=== PATIENT | male | born 1950 | race Caucasian/White ===

== ENCOUNTER 2019-11-14 11:03 | Inpatient (IN) | payer OTHER ==
[2019-11-14] VITALS (9 sets, daily range): BP systolic 98–143; BP diastolic 74–86
[~2019-11-14] VITALS: Ht 182.8 cm; Wt 85.3 kg
[~2019-11-14 11:03] MED LIST: ACETAMINOPHEN325 M2 PO; BACTROBAN OINT22 GM PO; BUPROPION HCL150 M1 PO; CALCIUM 500 + D1 TA1 PO; CLONAZEPAM0.5 MG PO; Depakote ER500 MG PO; FOSAMAX70 MG PO; GLYBURIDE5 MG PO; IBUPROFEN 30 M800 MG PO; KEFLEX500 MG PO; LANTUS SOL100 UNIT/1 SQ; LOMOTIL 0.025 M1 TA1 PO; MINIPRESS2 M1 PO; PANTOPRAZOLE40 M1 PO; POTASSIUM20 MEQ PO; SIMVASTATIN80 MG PO; TERAZOSIN5 MG PO; TRAMADOL HYDROC50 MG PO; [UNRECOGNIZED DRUG - CODE] PO
[2019-11-14 11:25] LABS: BASO % 0.6 % (0.0-1.0); EOS # 0.1 10*3/uL (0.0-0.4); HEMATOCRIT 44.2 % (42.0-52.0); HEMOGLOBIN 15.6 g/dl (14.0-18.0); LYMPH # 2.2 10*3/uL (1.3-4.4); LYMPH % 30.8 % (27.0-41.0); MEAN CORPUSCULAR HGB 30.7 pg (27.0-31.0); MEAN CORPUSCULAR HGB CONC 35.3 g/dl (33.0-37.0); MEAN PLATELET VOLUME 9.5 fl (9.6-12.3); MONO # 0.5 10*3/uL (0.1-1.0); NEUT # 4.3 10*3/uL (2.3-7.9); NEUT % 60.2 % (47.0-73.0); PLATELET COUNT AUTOMATED 145 10*3/uL (130-400); RED BLOOD COUNT 5.08 10*6/uL (4.50-5.90); RED CELL DISTRI WIDTH 13.6 % (0-14.5); WHITE BLOOD COUNT 7.1 10*3/uL (4.8-10.8)
[2019-11-14 11:35] LABS: ACT PARTIAL THROMBO TIME 27.2 SECONDS (20.0-32.1)
[2019-11-14 11:41] LABS: ALBUMIN 4.1 gm/dl (3.1-4.5); ALKALINE PHOSPHATASE 96 U/L (45-117); BUN 18 mg/dl (7-24); CHLORIDE 109 mmol/L (98-107); CREATININE 1.36 mg/dL (0.70-1.30); POTASSIUM 4.7 mmol/L (3.5-5.1); SGOT/AST 6 IU/L (3-35); SGPT/ALT 22 U/L (12-78); SODIUM 139 mmol/L (136-145); TOTAL PROTEIN 7.5 gm/dL (6.4-8.2)
[2019-11-14 11:43] LABS: TROPONIN I < 0.015 ng/ml (<0.045)
[2019-11-14] MEDS ORDERED: LISINOPRIL40 MG PO (14:46)
[2019-11-14] MEDS ORDERED: NEURONTIN100 MG PO (14:48)
[2019-11-14] MEDS ORDERED: LIPITOR20 MG PO (14:50)
[2019-11-14] MEDS ORDERED: NORVASC2.5 MG PO (14:50)
[2019-11-14] MEDS ORDERED: OMEPRAZOLE20 M2 PO (14:51)
[2019-11-14] MEDS ORDERED: GLUCOPHAGE500 M1 PO ×2 (14:55→14:58)
[2019-11-14] MEDS ORDERED: VITAMIN D33000 UNIT PO (14:59)
[2019-11-15] VITALS (10 sets, daily range): BP systolic 70–110; BP diastolic 46–72
[2019-11-15 08:52] LABS: BUN 19 mg/dl (7-24); CHLORIDE 109 mmol/L (98-107); CHOLESTEROL 139 mg/dL (<200); CREATININE 1.07 mg/dL (0.70-1.30); HDL CHOLESTEROL 42 mg/dl (40-60); LDL CHOLESTEROL 69 mg/dL (9-159); PHOSPHOROUS 3.2 mg/dL (2.5-4.9); POTASSIUM 4.2 mmol/L (3.5-5.1); SODIUM 140 mmol/L (136-145); TRIGLYCERIDES 141 mg/dl (<150); VLDL CHOLESTEROL 28 mg/dL (6-40)
[2019-11-16] VITALS: BP 101/76
[2019-11-16 08:00] VITALS: BP 104/72
[2019-11-16 12:00] VITALS: BP 122/82
[2019-11-16 16:00] VITALS: BP 118/71
[2019-11-16 20:00] VITALS: BP 105/71
[2019-11-17] VITALS: BP 99/63
[2019-11-17 08:00] VITALS: BP 112/72
[2019-11-17 10:32] VITALS: BP 129/67
[2019-11-17 11:55] VITALS: BP 103/64
[2019-11-17 12:10] VITALS: BP 100/60
[2019-11-17 12:25] VITALS: BP 119/71
[2019-11-17] MEDS ORDERED: METOPROLOL SUCC50 M1 PO (13:36)
[2019-11-17] MEDS ORDERED: DIGOXIN250 MCG PO (13:36)
[2019-11-17] MEDS ORDERED: XARE20MG PO (13:36)
== END 2019-11-17 15:06 | disposition home or self-care (01) | DRG 308 ==
LOC: ED 11:03 → EDHOLD 13:05 → 4E 13:05
PROVIDERS: Emergency Medicine; Student in an Organized Health Care Education/Training Program; ADMIT Family Medicine
PROC: 0HBRXZZ Excision of Toe Nail, External Approach (ICD-10-PCS; principal; 2019-11-15)
PROC: 3E073KZ Introduction of Other Diagnostic Substance into Coronary Artery, Percutaneous Approach (ICD-10-PCS; principal; 2019-11-15)
PROC: 4A02XM4 Measurement of Cardiac Total Activity, External Approach (ICD-10-PCS; principal; 2019-11-15)
PROC: B24BZZ4 Ultrasonography of Heart with Aorta, Transesophageal (ICD-10-PCS; 2019-11-17)
DX: I48.91 Unspecified atrial fibrillation (principal); N17.0 Acute kidney failure with tubular necrosis; I10 Essential (primary) hypertension; F43.10 Post-traumatic stress disorder, unspecified; E11.65 Type 2 diabetes mellitus with hyperglycemia; E87.8 Other disorders of electrolyte and fluid balance, not elsewhere classified; G89.29 Other chronic pain; M54.9 Dorsalgia, unspecified; B35.1 Tinea unguium; Z88.5 Allergy status to narcotic agent; Z88.8 Allergy status to other drugs, medicaments and biological substances